=== PATIENT | male | born 1980 | race Caucasian/White ===

== ENCOUNTER 2017-01-25 22:11 | Emergency (ER) | payer OTHER ==
[~2017-01-25] VITALS: Ht 182.9 cm; Wt 83.9 kg
[2017-01-25 23:46] VITALS: BP 113/73
== END 2017-01-25 23:47 | disposition home or self-care (01) ==
LOC: ER 22:11
DX: S01.81XA Laceration without foreign body of other part of head, initial encounter (principal); F10.99 Alcohol use, unspecified with unspecified alcohol-induced disorder; W21.07XA Struck by softball, initial encounter; Y93.64 Activity, baseball; Y92.89 Other specified places as the place of occurrence of the external cause; Y99.8 Other external cause status